=== PATIENT | male | born 1955 | race Hispanic/Latino ===

== ENCOUNTER 2021-07-28 06:48 | Day surgery (SDC) | payer OTHER ==
[2021-07-27 14:30] VITALS: BP 146/79
[~2021-07-28] VITALS: Ht 167.6 cm; Wt 70.7 kg
[2021-07-28] VITALS (13 sets, daily range): BP systolic 133–146; BP diastolic 72–85
[~2021-07-28 06:48] MED LIST: ATOR40TA69 PO; HYDR12.54 PO; LISI40TA9 PO; METO-408 PO; OMEP20CA12 PO; TAMS-1 PO
[2021-07-28] MEDS ORDERED: LACTATED RINGERS 1000ML 1,000 ML IV ONE (07:18)
[2021-07-28] MEDS ORDERED: SUCCINYLCHOLINE 200MG/10ML SYR ONE (07:24)
[2021-07-28] MEDS ORDERED: LIDOCAINE PF 100MG/5ML (2%) SYRINGE 5ML ONE (07:24)
[2021-07-28] MEDS ORDERED: DEXAMETHASONE SOD PHOSPHATE 10MG/ML 1ML VIAL ONE (07:24)
[2021-07-28] MEDS ORDERED: MIDAZOLAM HCL 1 MG/ML 2ML VIAL ONE (07:24)
[2021-07-28] MEDS ORDERED: PROPOFOL 10 MG/ML 20ML VIAL IV ONE (07:24)
[2021-07-28] MEDS ORDERED: ONDANSETRON 4MG INJ ONE (07:25)
[2021-07-28] MEDS ORDERED: NEOSTIGMINE 5MG/5ML SYR IV ONE (07:25)
[2021-07-28] MEDS ORDERED: GLYCOPYRROLATE 1 MG/5 ML SYRINGE ONE (07:25)
[2021-07-28] MEDS ORDERED: ROCURONIUM 10MG/1ML SYR 10 MG/ML ML ONE (07:25)
[2021-07-28] MEDS ORDERED: FENTANYL CITRATE PF 50 MCG/1 ML 2ML VIAL ONE (07:26)
[2021-07-28] MEDS ORDERED: CEFTRIAXONE 1G VIAL IVP ONE (08:00)
[2021-07-28] MEDS ORDERED: LIDOCAINE HCL 2% PF 20 ML JEL DISP.SYRIN MM ONE (08:10)
== END 2021-07-28 11:10 | disposition home or self-care (01) ==
LOC: DAH 06:48
PROVIDERS: ATTEND Urology
DX: R97.20 Elevated prostate specific antigen [PSA] (principal); Z20.822 Contact with and (suspected) exposure to COVID-19; I10 Essential (primary) hypertension; K21.9 Gastro-esophageal reflux disease without esophagitis; Z79.899 Other long term (current) drug therapy
CPT/HCPCS: 55700; 76872; 87635; 88305; 88341; 88342; A4215 ×2; A4221; A4222; A4223; A4649; A4663; A6260; C9803; J0330; J0696; J1100; J2001; J2250; J2405; J2704; J2710; J3010; J3490; J7120

== ENCOUNTER → 2024-08-19 | Outpatient (CLI) | payer OTHER ==
[~2024-08-19] VITALS: Ht 167.6 cm; Wt 71.0 kg
[~2024-08-19] MED LIST changes: +ALLO300T2 PO; +ATOR20TA65 PO; +CARV6.25 PO; +FINA5TAB41 PO; +LOSA1TAB42 PO; +OMEP20TA20 PO
[2024-08-19 13:04] LABS: BASOPHILS # (AUTO) 0.09 K/uL (0.00-0.20); BASOPHILS % (AUTO) 1.1 % (0.0-5.0); EOSINOPHILS # (AUTO) 0.16 K/uL (0.00-0.70); HEMATOCRIT 43.6 % (42-54); IMMATURE GRANULOCYTE ABSOLUTE 0.03 K/uL (0-1); LYMPHOCYTES # (AUTO) 3.2 K/uL (1.0-4.8); LYMPHOCYTES % (AUTO) 38.8 % (21.0-51.0); MEAN CORPUSCULAR HEMOGLOBIN 29.4 pg (27.0-33.0); MEAN CORPUSCULAR HGB CONC 31.7 g/dL (32.0-36.0); MONOCYTES # (AUTO) 0.7 K/uL (0.1-1.0); NEUTROPHILS % (AUTO) 48.7 % (40.0-77.0); PLATELET COUNT (AUTO) 318 K/uL (130-400); RED BLOOD CELL COUNT(AUTO) 4.69 MIL/uL (4.50-6.20); WHITE BLOOD COUNT (AUTO) 8.2 K/uL (4.8-10.8)
[2024-08-19 13:09] LABS: CREATININE 1.2 mg/dL (0.5-1.3); POTASSIUM 4.3 mmol/L (3.5-5.1)
[2024-08-19 13:20] VITALS: BP 153/87; PULSE 72; RESP 16; TEMP 98.3
== END | disposition home or self-care (01) ==
LOC: DAH 10:00 → EDSTATUS 15:00
PROVIDERS: ATTEND Urology
DX: Z01.812 Encounter for preprocedural laboratory examination (principal); N40.1 Benign prostatic hyperplasia with lower urinary tract symptoms; Z79.899 Other long term (current) drug therapy
CPT/HCPCS: 80048; 85025; 36415; A6260

== ENCOUNTER 2024-09-11 06:20 | Day surgery (SDC) | payer OTHER ==
[2024-09-09 12:12] LABS: EOSINOPHILS # (AUTO) 0.25 K/uL (0.00-0.70); EOSINOPHILS % (AUTO) 2.5 % (0.0-8.0); HEMATOCRIT 43.3 % (42-54); IMMATURE GRANULOCYTE ABSOLUTE 0.03 K/uL (0-1); LYMPHOCYTES # (AUTO) 3.8 K/uL (1.0-4.8); LYMPHOCYTES % (AUTO) 38.2 % (21.0-51.0); MEAN CORPUSCULAR HEMOGLOBIN 29.6 pg (27.0-33.0); MEAN CORPUSCULAR HGB CONC 32.6 g/dL (32.0-36.0); MONOCYTES % (AUTO) 10.1 % (3.0-13.0); NEUTROPHILS # (AUTO) 4.7 K/uL (1.8-7.7); NEUTROPHILS % (AUTO) 47.9 % (40.0-77.0); PLATELET COUNT (AUTO) 307 K/uL (130-400); RED BLOOD CELL COUNT(AUTO) 4.76 MIL/uL (4.50-6.20); RED CELL DISTRIBUTION WIDTH 13.8 % (11.0-15.5); WHITE BLOOD COUNT (AUTO) 9.8 K/uL (4.8-10.8)
[2024-09-09 12:35] VITALS: BP 164/80; PULSE 66; RESP 18; TEMP 97.6
[2024-09-09 12:38] LABS: CREATININE 1.1 mg/dL (0.5-1.3); POTASSIUM 4.6 mmol/L (3.5-5.1)
--- NOTE | 2024-09-09 14:20 | EKG ---
[facility] Test Date: 2024-09-09 Test Time: 13:00:48 Pat Name: LAYA MANCILLA Department: [facility] Room: [facility] Gender: M [employer] In[employer]: [id number] : 1955 Requested By: ASHU OROPEZA Order Number: [id number] Reading MD: Guevara Wu Measurements Intervals [place] Rate: 68 P: 55 WV: 188 QRS: 16 QRSD: 92 T: 13 QT: 409 QTc: 434 Interpretive Statements Sinus rhythm No previous ECG available for comparison Electronically Signed On 09-13-2024 17:14:55 WEAVER TIRE CORD by Guevara Wu Please click the below link to view image of tracing.
[~2024-09-11] VITALS: Ht 167.6 cm; Wt 72.3 kg
[2024-09-11] VITALS (9 sets, daily range): BP systolic 103–153; BP diastolic 62–89; PULSE 62–70; RESP 12–16; TEMP 96.9–97.4
[~2024-09-11 06:20] MED LIST changes: -ATOR20TA65 PO; -ATOR40TA69 PO; -HYDR12.54 PO; -LISI40TA9 PO; -METO-408 PO; -OMEP20CA12 PO
[2024-09-11] MEDS: cefTRIAXone 1G VIAL IVPB SCH (07:00)
[2024-09-11] MEDS ORDERED: cefTRIAXone 1G VIAL ONE (07:14)
[2024-09-11] MEDS ORDERED: ondanSETRON 4MG INJ ONE (07:20)
[2024-09-11] MEDS ORDERED: proPOFol 10 MG/ML 20ML VIAL IV ONE ×2 (07:20→09:33)
[2024-09-11] MEDS ORDERED: LIDOCAINE PF 100MG/5ML (2%) SYRINGE 5ML ONE (07:20)
[2024-09-11] MEDS ORDERED: dexaMETHasone SOD PHOSPHATE 4 MG/ML 1ML VIAL ONE (07:20)
[2024-09-11] MEDS: LACTATED RINGERS 1000ML 1,000 ML IV ONE (07:41)
[2024-09-11] MEDS ORDERED: FENTanyl CITRate PF 50 MCG/1 ML 2ML VIAL ONE (09:10)
[2024-09-11] MEDS ORDERED: LIDOCAINE HCL 2% PF 20 ML JEL DISP.SYRIN MM ONE (09:23)
[2024-09-11] MEDS ORDERED: phenylEPHRINE HCL 10 MG/ML 1ML VIAL IV ONE (09:52)
[2024-09-11] MEDS ORDERED: GENTAmicin 80 MG/NS 100 ML PB 100 ML IV ONE (09:56)
--- NOTE | 2024-09-11 10:34 | OP ---
DATE OF PROCEDURE: 09/11/2024 PREOPERATIVE DIAGNOSES: Elevated PSA and abnormal MRI. POSTOPERATIVE DIAGNOSES: Elevated PSA and abnormal MRI. PROCEDURE PERFORMED: Transrectal ultrasound with prostate needle biopsy. ANESTHESIA: Monitored anesthesia care with IV sedation and local application of 1% lidocaine jelly. SURGEON: Lore Gil MD PREOPERATIVE INDICATIONS: This is a 68-year-old gentleman who has had PSA fluctuations over the years. He underwent a transrectal ultrasound prostate needle biopsy 3 years previously with no findings of malignancy. The patient has had episodic prostatitis with fevers and positive urine cultures and incomplete emptying. He was being readied for a GreenLight laser vaporization of his prostate tissue to relieve the obstruction when the patient was noted to have a sustained elevated PSA. Despite a negative urine culture, the PSA increased to 20 and an MRI was obtained. This is a parametric MRI with and without contrast revealing a suspicious area in the left peripheral region. He presents today for repeat transrectal ultrasound with prostate needle biopsy. Preoperatively, the patient was prepped with Fleet's enema and did receive Augmentin however, he developed GI upset with Augmentin and this has been changed to Bactrim, during the course and preoperatively, the patient received Rocephin 1 g and gentamicin 80 mg. DESCRIPTION OF PROCEDURE: The patient was brought to the operating room and placed in the left lateral decubitus position. He was prepped with a Betadine wash and a 1% lidocaine jelly was introduced into the patient's rectum after adequate anesthesia had been achieved. A transrectal ultrasound probe was introduced into the rectal vault and imaging was obtained. The patient has been on medical therapy with tamsulosin and finasteride and his prostate volume was approximately 50 grams. In the past, it was 75 grams. Systematic biopsies were obtained from standard mapping of 12 sites of the right and left lobes with a sextant cores from each lobe. Multiple cores were obtained from the area of interest in the left peripheral zone. A total of 16 cores were obtained. The patient tolerated the procedure well and there were no complications. He will be discharged to home today to continue his Bactrim and he is to follow up in the office in 7-10 days for results. The was directed that if the patient does have a fever to call immediately. ADDENDUM: His creatinine preoperatively was 1.1 with a glomerular filtration rate of 74. He had an H and H of 14.1 and 43.3 respectively and a normal white count. TID: [id number] RECEIPT: [id number]
--- NOTE | 2024-09-11 10:53 | HMCIMG ---
US TRANSRECTAL REASON: BHP. COMPARISON: None TECHNIQUE: Endorectal prostate ultrasound images were obtained for biopsy purpose performed by referring physician. FINDINGS: Please see procedure report by the physician IMPRESSION: Intraoperative films.
[2024-09-11] MEDS ORDERED: SULF1TAB41 PO (10:55)
== END 2024-09-11 11:07 | disposition home or self-care (01) ==
LOC: DAH 06:20
PROVIDERS: ATTEND Urology
DX: R97.20 Elevated prostate specific antigen [PSA] (principal); C61 Malignant neoplasm of prostate; N41.8 Other inflammatory diseases of prostate; I10 Essential (primary) hypertension; K21.9 Gastro-esophageal reflux disease without esophagitis; M10.9 Gout, unspecified; Z88.8 Allergy status to other drugs, medicaments and biological substances; Z79.899 Other long term (current) drug therapy; Z98.890 Other specified postprocedural states
CPT/HCPCS: 80048; 85025; 36415; 93005; 55700; 88305; 76872; J1100; A4663; J7120; J3010; J2003; J0696; J2704 ×2; J2405; J2371; J1580; A4215 ×2; A4930; A4649; A4223; A4222; A4221; A4510; A4600; J3490

== ENCOUNTER → 2024-09-23 | Outpatient (CLI) | payer OTHER ==
[~2024-09-23] MED LIST changes: +SULF1TAB41 PO
--- NOTE | 2024-09-23 16:45 | HMCIMG ---
NM BONE SCAN WHOLE BODY REASON: malignant neoplasm of prostate. COMPARISON: None TECHNIQUE: Total body bone imaging study was performed with 25.7 mCi of technetium MDP through intravenous route. FINDINGS: Increased activities are seen in the shoulders, hips, knees, elbows and ankles consistent with degenerative changes. No definite scintigraphic evidence of bone metastases. IMPRESSION: DJD. No scintigraphic evidence of bone metastases.
== END | disposition home or self-care (01) ==
LOC: RAH 07:04
PROVIDERS: ATTEND Urology
DX: C61 Malignant neoplasm of prostate (principal); M16.0 Bilateral primary osteoarthritis of hip; M17.0 Bilateral primary osteoarthritis of knee; M19.011 Primary osteoarthritis, right shoulder; M19.012 Primary osteoarthritis, left shoulder
CPT/HCPCS: 78306; A9503